=== PATIENT | male | born 1980 ===

== ENCOUNTER 2017-08-17 21:54 | Emergency (ER) | payer SELFPAY ==
[2017-08-17] MEDS ORDERED: 0.9 % SODIUM CHLORIDE 1,000 ML BAG IV ONE (22:04)
[2017-08-17] MEDS ORDERED: ONDANSETRON HCL IV 4 MG/2 ML VIAL IVP ONE (22:04)
[2017-08-17] MEDS ORDERED: MAGNESIUM SULFATE 16 MEQ in 0.9 % SODIUM CHLORIDE 100ML 100 ML IV ONE (22:05)
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
[2017-08-17 22:17] LABS: BASO % 0.3 % (0-6); EOS % 0.3 % (0-6); GRAN % 69.3 % (47-80); HEMATOCRIT 42.8 % (42.0-52.0); HEMOGLOBIN 14.7 gm/dl (14.0-18.0); LYMPH % 26.8 % (16-45); MEAN CELL VOLUME 91.1 fl (81-97); MEAN CORPUSCULAR HEMOGLOBIN 31.3 pg (27-33); MEAN CORPUSCULAR HGB CONC 34.3 g/dl (32-36); MEAN PLATELET VOLUME 10.5 fl (7.4-10.4); MONO % 3.3 % (0-9); PLATELET COUNT 320 K/uL (130-400); RED CELL DISTRIBUTION WIDTH 12.8 % (11.5-14.5)
[2017-08-17 22:30] LABS: BLOOD UREA NITROGEN 9 mg/dL (6-20); CREATININE 0.8 mg/dL (0.7-1.2); EST GLOMERULAR FILTRATION RATE > 60 mL/min
[2017-08-17 22:31] LABS: TOTAL PROTEIN 7.9 g/dL (6.6-8.7)
[2017-08-17 22:33] LABS: GLUCOSE,RANDOM 119 mg/dL (74-109)
[2017-08-17 22:35] LABS: ALT/SGPT 10 U/L (<41)
[2017-08-17 22:36] LABS: ALB/GLOB RATIO 1.6 (1.1-1.8); ALBUMIN 4.9 g/dL (4.0-5.0); ALKALINE PHOSPHATASE 79 U/L (40-129); AST/SGOT 14 U/L (10.0-50.0)
[2017-08-17 22:44] LABS: ACETAMINOPHEN < 5.0 ug/mL (10.0-30.0); ALCOHOL 0.317 g/dL (0-0.010); SALICYLATE < 0.3 mg/dL (2.8-20)
[2017-08-17] MEDS ORDERED: THIAMINE HCL IV 100 MG in 0.9 % SODIUM CHLORIDE 1000ML 1,000 ML IV SCH (22:45)
[2017-08-17] MEDS ORDERED: THIAMINE HCL IV 100 MG in 0.9 % SODIUM CHLORIDE 1000ML 1,000 ML IV ONE (22:47)
== END 2017-08-18 01:15 | disposition home or self-care (01) ==
LOC: ER 21:54
DX: F10.129 Alcohol abuse with intoxication, unspecified (principal); Y90.8 Blood alcohol level of 240 mg/100 ml or more; R11.2 Nausea with vomiting, unspecified
CPT/HCPCS: 99284 ×2; 96365; 96366; 96375; 85025; 80053; 93005; 93010; G0480 ×3; J2405; 80320; 80329; J3411; J7030

== ENCOUNTER 2017-11-09 00:03 | Emergency (ER) | payer SELFPAY ==
[2017-11-09] MEDS ORDERED: IBUPROFEN 600 MG TABLET PO ONE (00:32)
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
== END 2017-11-09 01:07 | disposition home or self-care (01) ==
LOC: ER 00:03
DX: S86.812A Strain of other muscle(s) and tendon(s) at lower leg level, left leg, initial encounter (principal); X50.0XXA Overexertion from strenuous movement or load, initial encounter; Y92.410 Unspecified street and highway as the place of occurrence of the external cause
CPT/HCPCS: 99282

== ENCOUNTER 2017-11-29 19:59 | Emergency (ER) | payer SELFPAY ==
[2017-11-29] MEDS ORDERED: IPRATROPIUM/ALBUTEROL (0.5MG/3MG) NEB INH ONE (20:34)
--- NOTE | 2017-11-29 20:47 | Emergency Department Record ---
History of Present Illness - General Chief Complaint: Shortness of breath Stated Complaint: KHADRA/ASTHMA RELATED/ L LEG PAIN Time Seen by Provider: 11/29/17 20:18 Source: Patient Mode of Arrival: Ambulatory Limitations: No limitations - History of Present Illness Initial Comments: pt has a productive orange brown cough. he also states he never f/u re his leg injury as instructed. Complaint: Cough, Shortness of breath Onset/Timin -: Week(s) Consistency: Intermittent Context: Recent URI Associated Symptoms: Cough, Sputum production - Related Data Previous Rx's Medication Instructions Recorded Sulfamethoxazole/Trimethoprim 1 each PO BID #14 tablet 11/29/17 [Bactrim Ds Tablet] Allergies Allergy/AdvReac Type Severity Reaction Status Date / Time Penicillins Allergy HIVES Verified 11/09/17 00:12 Travel Screening - Travel/Exposure Within Last 30 Days Have you traveled within the last 30 days?: No - Travel Symptoms Symptom Screening: None Review of Systems Reviewed: No additional complaints except as noted below Constitutional: Reports: As per HPI. Denies: Chills, Fever, Malaise, Night sweats, Weakness, Weight change Eyes: Reports: As per HPI. Denies: Eye discharge, Eye pain, Photophobia, Vision change ENT: Reports: As per HPI. Denies: Congestion, Dental pain, Ear pain, Epistaxis , Hearing loss, Throat pain Respiratory: Reports: As per HPI. Denies: Cough, Dyspnea, Hemoptysis, Stridor, Wheezes Cardiovascular: Reports: As per HPI. Denies: Arrhythmia, Chest pain, Dyspnea on exertion, Edema, Murmurs, Orthopnea, Palpitations, Paroxysmal nocturnal dyspnea, Rheumatic Fever, Syncope Endocrine: Reports: As per HPI. Denies: Fatigue, Heat or cold intolerance, Polydipsia, Polyuria Gastrointestinal: Reports: As per HPI. Denies: Abdominal pain, Constipation, Diarrhea, Hematemesis, Hematochezia, Melena, Nausea, Vomiting Genitourinary: Reports: As per HPI. Denies: Dysuria, Frequency, Hematuria, Incontinence, Retention, Testicular pain, Testicular mass, Urgency Musculoskeletal: Reports: As per HPI. Denies: Arthralgia, Back pain, Gout, Joint swelling, Myalgia, Neck pain Skin: Reports: As per HPI. Denies: Bruising, Change in color, Change in hair/ nails, Lesions, Pruritus, Rash Neurological: Reports: As per HPI. Denies: Abnormal gait, Confusion, Headache, Numbness, Paresthesias, Seizure, Tingling, Tremors, Vertigo, Weakness Psychiatric: Reports: As per HPI. Denies: Anxiety, Auditory hallucinations, Depression, Homicidal thoughts, Suicidal thoughts, Visual hallucinations Hematological/Lymphatic: Reports: As per HPI. Denies: Anemia, Blood Clots, Easy bleeding, Easy bruising, Swollen glands Past Medical History - SOCIAL HISTORY Smoking Status: Current every day smoker - RESPIRATORY Hx Respiratory Disorders: Yes Hx Asthma: Yes - CARDIOVASCULAR Hx Cardio Disorders: No - NEURO Hx Neuro Disorders: No - GI Hx GI Disorders: No - Hx Genitourinary Disorders: No - ENDOCRINE Hx Endocrine Disorders: No - MUSCULOSKELETAL Hx Musculoskeletal Disorders: No - PSYCH Hx Psych Problems: No - HEMATOLOGY/ONCOLOGY Hx Hematology/Oncology Disorders: No Family Medical History Any Significant Family History?: No Family Hx Comment (NOT TO BE USED IN PLACE OF ITEMS BELOW): unknown Physical Exam - General General Appearance: Alert, Oriented x3, Cooperative, Mild distress - Head Head exam: Normal inspection - Eye Eye exam: Normal appearance, PERRL, EOMI Pupils: Normal accommodation - ENT ENT exam: Normal exam, Mucous membranes moist, Normal external ear exam, Normal orophraynx Ear exam: Normal external inspection. negative: External canal tenderness Nasal Exam: Normal inspection. negative: Discharge, Sinus tenderness Mouth exam: Normal external inspection, Tongue normal Teeth exam: Normal inspection. negative: Dental caries Throat exam: Normal inspection. negative: Tonsillar erythema, Tonsillar exudate - Neck Neck exam: Normal inspection, Full ROM. negative: Tenderness - Respiratory Respiratory exam: Normal lung sounds bilaterally. negative: Respiratory distress - Cardiovascular Cardiovascular Exam: Regular rate, Normal rhythm, Normal heart sounds - GI/Abdominal GI/Abdominal exam: Soft, Normal bowel sounds. negative: Tenderness - Rectal Rectal exam: Deferred - exam: Deferred - Extremities Extremities exam: Normal inspection, Full ROM, Normal capillary refill. negative: Tenderness - Back Back exam: Reports: Normal inspection, Full ROM. Denies: Muscle spasm, Rash noted, Tenderness - Neurological Neurological exam: Alert, CN II-XII intact, Normal gait, Oriented X3 - Psychiatric Psychiatric exam: Normal affect, Normal mood - Skin Skin exam: Dry, Intact, Normal color, Warm Course Vital Signs 11/29/17 20:06 Temperature 97.5 F L Pulse Rate [ 78 Pulse Ox Probe] Respiratory 20 Rate Blood Pressure 147/78 [Left Arm] Pulse Ox 100 - Reevaluation(s) Reevaluation #1: 11/29/17 21:46 pt had been previously been seen for gastrocnemius partial rupture in the ed. he was to follow up with ortho which he has not done Disposition Disposition: Discharge Clinical Impression: Bronchitis Disposition: Home, Self-Care Condition: (1) Good Instructions: Acute Bronchitis (ED) Additional Instructions: follow up with family doctor. return sooner if worse. follow up with ortho as previously arranged Prescriptions: Sulfamethoxazole/Trimethoprim [Bactrim Ds Tablet] 1 each PO BID #14 tablet Referrals: [facility] Special[facility] [Provider Group] NILSON NOGUEIRA [DOCTOR OF OSTEOPATH] - Forms: Patient Portal Access Quality - Quality Measures Quality Measures: N/A - Blood Pressure Screening Does Patient Have Any of the Following: No Blood Pressure Classification: Hypertensive Reading Systolic Measurement: 147 Diastolic Measurement: 78 Screening for High Blood Pressure: < Pre-Hypertensive BP, F/U Documented > [ G8950] Pre-Hypertensive Follow-up Interventions: Follow-up with rescreen every year.
[2017-11-29] MEDS ORDERED: TMP/SMZ 160MG/800MG TAB PO ONE (21:42)
[2017-11-29] MEDS ORDERED: ALBUTEROL HFA 8 GM INHALER INH SCH (23:00)
--- NOTE | 2017-12-01 09:34 | RADIOLOGY REPORT ---
EXAM: CHEST, TWO VIEWS HISTORY: PATIENT HAS PRODUCTIVE COUGH AND SHORTNESS OF BREATH. TECHNIQUE: Two views of the chest are provided without comparison examination. FINDINGS: The cardiomediastinal silhouette is within normal limits for size and contour. The gee appear unremarkable. There is no radiographic evidence of a focal infiltrate, pleural effusion, or pneumothorax. IMPRESSION: NO RADIOGRAPHIC EVIDENCE OF AN ACUTE INTRATHORACIC PROCESS. JOB NUMBER: [id number] [facility]
== END 2017-11-29 22:04 | disposition home or self-care (01) ==
LOC: ER 19:59
DX: J20.9 Acute bronchitis, unspecified (principal); M79.1 Myalgia; R06.02 Shortness of breath; F17.210 Nicotine dependence, cigarettes, uncomplicated
CPT/HCPCS: 99283; 99284; 71046; 94640; J3490

== ENCOUNTER 2018-03-19 11:45 | Emergency (ER) | payer SELFPAY ==
[2018-03-19] MEDS ORDERED: METHYLPREDNISOLONE PF 125MG/VIAL IM ONE (13:11)
[2018-03-19] MEDS ORDERED: DIPHENHYDRAMINE HCL 50 MG/ML VIAL IM ONE (13:11)
--- NOTE | 2018-03-19 13:16 | Emergency Department Record ---
History of Present Illness - General Chief complaint: Poison nancy/oak/sumac exposure Stated complaint: poison nancy Time Seen by Provider: 03/19/18 13:07 Source: Patient Mode of Arrival: Ambulatory Limitations: No limitations - History of Present Illness Initial comments: pt has been working out in the shrub outside and now has poison nancy. complaint: Rash Onset/Timin -: Days(s) Location: Generalized Consistency: Constant Improves with: None Worsens with: None Context: Other Associated symptoms: Itching Treatments Prior to Arrival: OTC topical medication - Related Data Previous Rx's Medication Instructions Recorded Methylprednisolone [Medrol Dose 4 mg PO ASDIR #1 tab.ds.pk 03/19/18 Pack] Allergies Allergy/AdvReac Type Severity Reaction Status Date / Time bee venom protein (honey bee) Allergy ANAPHYLAXIS Verified 03/19/18 13:00 Penicillins Allergy HIVES Verified 03/19/18 13:00 Travel Screening - Travel/Exposure Within Last 30 Days Have you traveled within the last 30 days?: No - Travel/Exposure Within Last Year Have you traveled outside the [place] in the last year?: No - Additonal Travel Details Have you been exposed to anyone with a communicable illness?: No - Travel Symptoms Symptom Screening: None Review of Systems Reviewed: No additional complaints except as noted below Constitutional: Reports: As per HPI. Denies: Chills, Fever, Malaise, Night sweats, Weakness, Weight change Eyes: Reports: As per HPI. Denies: Eye discharge, Eye pain, Photophobia, Vision change ENT: Reports: As per HPI. Denies: Congestion, Dental pain, Ear pain, Epistaxis , Hearing loss, Throat pain Respiratory: Reports: As per HPI. Denies: Cough, Dyspnea, Hemoptysis, Stridor, Wheezes Cardiovascular: Reports: As per HPI. Denies: Arrhythmia, Chest pain, Dyspnea on exertion, Edema, Murmurs, Orthopnea, Palpitations, Paroxysmal nocturnal dyspnea, Rheumatic Fever, Syncope Endocrine: Reports: As per HPI. Denies: Fatigue, Heat or cold intolerance, Polydipsia, Polyuria Gastrointestinal: Reports: As per HPI. Denies: Abdominal pain, Constipation, Diarrhea, Hematemesis, Hematochezia, Melena, Nausea, Vomiting Genitourinary: Reports: As per HPI. Denies: Dysuria, Frequency, Hematuria, Incontinence, Retention, Testicular pain, Testicular mass, Urgency Musculoskeletal: Reports: As per HPI. Denies: Arthralgia, Back pain, Gout, Joint swelling, Myalgia, Neck pain Skin: Reports: As per HPI. Denies: Bruising, Change in color, Change in hair/ nails, Lesions, Pruritus, Rash Neurological: Reports: As per HPI. Denies: Abnormal gait, Confusion, Headache, Numbness, Paresthesias, Seizure, Tingling, Tremors, Vertigo, Weakness Psychiatric: Reports: As per HPI. Denies: Anxiety, Auditory hallucinations, Depression, Homicidal thoughts, Suicidal thoughts, Visual hallucinations Hematological/Lymphatic: Reports: As per HPI. Denies: Anemia, Blood Clots, Easy bleeding, Easy bruising, Swollen glands Past Medical History - SOCIAL HISTORY Smoking Status: Current every day smoker Alcohol Use: None Drug Use: None - RESPIRATORY Hx Respiratory Disorders: Yes Hx Asthma: Yes - CARDIOVASCULAR Hx Cardio Disorders: No - NEURO Hx Neuro Disorders: No - GI Hx GI Disorders: No - Hx Genitourinary Disorders: No - ENDOCRINE Hx Endocrine Disorders: No - MUSCULOSKELETAL Hx Musculoskeletal Disorders: No - PSYCH Hx Psych Problems: No - HEMATOLOGY/ONCOLOGY Hx Hematology/Oncology Disorders: No Family Medical History Any Significant Family History?: No Family Hx Comment (NOT TO BE USED IN PLACE OF ITEMS BELOW): unknown Physical Exam - General General Appearance: Alert, Oriented x3, Cooperative, Mild distress - Head Head exam: Normal inspection - Eye Eye exam: Normal appearance, PERRL, EOMI Pupils: Normal accommodation - ENT ENT exam: Normal exam, Mucous membranes moist, Normal external ear exam, Normal orophraynx, TM's normal bilaterally Ear exam: Normal external inspection. negative: External canal tenderness Nasal Exam: Normal inspection. negative: Discharge, Sinus tenderness Mouth exam: Normal external inspection, Tongue normal Teeth exam: Normal inspection. negative: Dental caries Throat exam: Normal inspection. negative: Tonsillar erythema, Tonsillar exudate - Neck Neck exam: Normal inspection, Full ROM. negative: Tenderness - Respiratory Respiratory exam: Normal lung sounds bilaterally. negative: Respiratory distress - Cardiovascular Cardiovascular Exam: Regular rate, Normal rhythm, Normal heart sounds - GI/Abdominal GI/Abdominal exam: Soft, Normal bowel sounds. negative: Tenderness - Rectal Rectal exam: Deferred - exam: Deferred - Extremities Extremities exam: Normal inspection, Full ROM, Normal capillary refill. negative: Tenderness - Back Back exam: Reports: Normal inspection, Full ROM. Denies: Muscle spasm, Rash noted, Tenderness - Neurological Neurological exam: Alert, CN II-XII intact, Normal gait, Oriented X3 - Psychiatric Psychiatric exam: Normal affect, Normal mood - Skin Skin exam: Dry, Intact, Normal color, Rash, Warm Distribution of rash: Chest, Genitals, RUE, LUE Description of rash: Confluent, Macular, Papular, Vesicular Course Vital Signs 03/19/18 03/19/18 11:50 13:01 Temperature 98.5 F 98.5 F Pulse Rate 60 Respiratory 18 18 Rate Blood Pressure 115/67 Pulse Ox 98 98 Disposition Disposition: Discharge Clinical Impression: Poison nancy dermatitis Disposition: Home, Self-Care Condition: (1) Good Instructions: Poison Nancy (ED) Additional Instructions: follow up with family doctor. return sooner if worse. benadryl every 6 hours as needed Prescriptions: Methylprednisolone [Medrol Dose Pack] 4 mg PO ASDIR #1 tab.ds.pk Quality - Quality Measures Quality Measures: N/A - Blood Pressure Screening Does Patient Have Any of the Following: No Blood Pressure Classification: Normal BP Reading Systolic Measurement: 115 Diastolic Measurement: 67 Screening for High Blood Pressure: < Normal BP, F/U Not Required > [G8783]
== END 2018-03-19 13:38 | disposition home or self-care (01) ==
LOC: ER 11:45
DX: L23.7 Allergic contact dermatitis due to plants, except food (principal); F17.210 Nicotine dependence, cigarettes, uncomplicated
CPT/HCPCS: 96372; 99283; J1200; J2930

== ENCOUNTER 2018-03-21 18:17 | Emergency (ER) | payer SELFPAY ==
[2018-03-21] MEDS ORDERED: METHYLPREDNISOLONE PF 125MG/VIAL IVP ONE (18:21)
[2018-03-21] MEDS ORDERED: FAMOTIDINE IV 20 MG/2 ML VIAL IVP ONE (18:21)
[2018-03-21] MEDS ORDERED: DIPHENHYDRAMINE HCL 50 MG/ML VIAL IVP ONE (18:21)
--- NOTE | 2018-03-21 18:27 | Emergency Department Record ---
History of Present Illness - General Stated complaint: REACTION TO BEE STINGS Time Seen by Provider: 03/21/18 18:18 Source: Patient Mode of Arrival: Ambulatory Limitations: No limitations - History of Present Illness Initial Comments: 37 yo male presents to ED for evaluation following a bee sting to the upper lip and right hand that occurred approximately 30 minutes prior to arrival. Patient reports a history of localized reactions with previous bee stings. Patient also reports taking Benadryl just prior to arrival as well. Patient denies throat swelling, difficulty breathing, or wheezing at this time. Patient also denies health problems at his baseline. MD Complaint: Facial swelling Onset/Timin -: Minutes(s) Exposure: Insect bite Symptoms: Itching, Lip swelling Severity: Moderate Treatment Prior to Arrival: Benadryl - Related Data Previous Rx's Medication Instructions Recorded Methylprednisolone [Medrol Dose 4 mg PO ASDIR #1 tab.ds.pk 03/19/18 Pack] Famotidine [Pepcid] 40 mg PO DAILY #15 tablet 03/21/18 Prednisone [Prednisone 20Mg] 20 mg PO TID #12 tab 03/21/18 Allergies Allergy/AdvReac Type Severity Reaction Status Date / Time bee venom protein (honey bee) Allergy ANAPHYLAXIS Verified 03/19/18 13:00 Penicillins Allergy HIVES Verified 03/19/18 13:00 Review of Systems Constitutional: Denies: Chills, Fever, Malaise, Night sweats Eyes: Denies: Eye discharge, Eye pain ENT: Reports: Other (Lip swelling). Denies: Congestion, Ear pain, Epistaxis Respiratory: Denies: Cough, Dyspnea, Hemoptysis Cardiovascular: Denies: Chest pain, Dyspnea on exertion Endocrine: Denies: Fatigue, Heat or cold intolerance Gastrointestinal: Denies: Abdominal pain, Nausea, Vomiting Genitourinary: Denies: Incontinence, Retention Musculoskeletal: Denies: Arthralgia, Back pain, Gout, Joint swelling Skin: Reports: Change in color, Rash (Right hand resulting from sting). Denies : Bruising Neurological: Denies: Abnormal gait, Confusion, Headache Psychiatric: Denies: Anxiety Hematological/Lymphatic: Denies: Anemia, Blood Clots Past Medical History - SOCIAL HISTORY Smoking Status: Current every day smoker Drug Use: None - RESPIRATORY Hx Respiratory Disorders: Yes Hx Asthma: Yes - CARDIOVASCULAR Hx Cardio Disorders: No - NEURO Hx Neuro Disorders: No - GI Hx GI Disorders: No - Hx Genitourinary Disorders: No - ENDOCRINE Hx Endocrine Disorders: No - MUSCULOSKELETAL Hx Musculoskeletal Disorders: No - PSYCH Hx Psych Problems: No - HEMATOLOGY/ONCOLOGY Hx Hematology/Oncology Disorders: No Family Medical History Family Hx Comment (NOT TO BE USED IN PLACE OF ITEMS BELOW): unknown Physical Exam - General General Appearance: Alert, Oriented x3, Cooperative, Mild distress Limitations: No limitations - Head Head exam: Atraumatic Head exam detail: negative: Abrasion, Contusion, Cohen's sign, General tenderness, Hematoma, Laceration - Eye Eye exam: Normal appearance. negative: Conjunctival injection, Periorbital swelling, Periorbital tenderness, Scleral icterus - ENT Ear exam: negative: Auricular hematoma, Auricular trauma Nasal Exam: negative: Active bleeding, Discharge, Dried blood Mouth exam: Other (Swelling to the upper lip on examination). negative: Drooling, Laceration, Muffled voice, Tongue elevation, Tongue normal Throat exam: Other (No uvular edema on examination). negative: R peritonsillar mass, L peritonsillar mass - Neck Neck exam: Normal inspection. negative: Meningismus, Tenderness - Respiratory Respiratory exam: Normal lung sounds bilaterally. negative: Respiratory distress, Rhonchi, Stridor, Wheezes - Cardiovascular Cardiovascular Exam: Regular rate, Normal rhythm, Normal heart sounds - GI/Abdominal GI/Abdominal exam: Soft. negative: Rebound, Rigid, Tenderness - Rectal Rectal exam: Deferred - exam: Deferred - Extremities Extremities exam: Tenderness (Localized reaction to a sting to the dorsun of the right hand, interspace between the index finger and thumb with localized erythema and swelling present.). negative: Pedal edema - Back Back exam: Denies: CVA tenderness (R), CVA tenderness (L) - Neurological Neurological exam: Alert, Normal gait, Oriented X3 - Psychiatric Psychiatric exam: Normal affect, Normal mood - Skin Skin exam: Erythema, Urticaria (Localized). negative: Abrasion Type of lesion: negative: abrasion Distribution of rash: RUE Course - Reevaluation(s) Reevaluation #1: 03/21/18 18:30 Patient was seen and examined, Solumedrol, Pepcid, and Benadryl ordered IV. No evidence for anaphylactic reaction on examination, but will monitor closely for progression of the patient's lip swelling and administer epinephrine if symptoms progress. Reevaluation #2: 03/21/18 18:54 Patient reassessed, reports symptoms are beginning to improve. Reevaluation #3: 03/21/18 19:36 Patient reassessed, resting comfortably with no respiratory/airway distress. Patient's lip swelling continues to improve, localized reaction to the right hand is significantly improved as well. Will continue to observe. Reevaluation #4: 03/21/18 20:38 Patient continues to improve, reports that he is ready to go home at this time. Will discharge home on Prednisone and Pepcid as directed for recurrent swelling symptoms. Patient verbalizes understanding of all instructions and appears stable for discharge at this time. Disposition Disposition: Discharge Clinical Impression: Bee sting reaction Qualifiers: Encounter type: initial encounter Injury intent: undetermined intent Qualified Code(s): T63.444A - Toxic effect of venom of bees, undetermined, initial encounter Disposition: Home, Self-Care Condition: (2) Stable Instructions: Insect Bite or Sting (ED) Additional Instructions: Return to ED if your symptoms worsen or if you have any concerns. Prednisone, Pepcid and directed. Follow-up with your family doctor in 3-5 days as directed. Prescriptions: Famotidine [Pepcid] 40 mg PO DAILY #15 tablet Prednisone [Prednisone 20Mg] 20 mg PO TID #12 tab Time of Disposition: 20:40 Quality - Quality Measures Quality Measures: N/A - Blood Pressure Screening Does Patient Have Any of the Following: No Blood Pressure Classification: Pre-Hypertensive BP Reading Systolic Measurement: 141 Diastolic Measurement: 82 Screening for High Blood Pressure: < Pre-Hypertensive BP, F/U Documented > [ G8950] Pre-Hypertensive Follow-up Interventions: Referral to alternative/primary care provider.
== END 2018-03-21 20:42 | disposition home or self-care (01) ==
LOC: ER 18:17
DX: T63.441A Toxic effect of venom of bees, accidental (unintentional), initial encounter (principal); R22.0 Localized swelling, mass and lump, head; F17.210 Nicotine dependence, cigarettes, uncomplicated
CPT/HCPCS: 99284 ×2; 96374; 96375; J3490; J1200; J2930

== ENCOUNTER 2018-05-10 14:05 | Emergency (ER) | payer SELFPAY | END 2018-05-10 14:57 | disposition left against medical advice (07) | LOC: ER 14:05 | DX: Z53.20 Procedure and treatment not carried out because of patient's decision for unspecified reasons (principal) ==

== ENCOUNTER 2018-06-15 17:35 | Emergency (ER) | payer SELFPAY ==
[2018-06-15] MEDS ORDERED: 0.9 % SODIUM CHLORIDE 1,000 ML BAG IV ONE (17:57)
[2018-06-15] MEDS ORDERED: ONDANSETRON HCL IV 4 MG/2 ML VIAL IV ONE (17:57)
[2018-06-15] MEDS ORDERED: SUCRALFATE 1 G/10 ML UD PO ONE (18:06)
--- NOTE | 2018-06-15 18:06 | Emergency Department Record ---
History of Present Illness - General Chief Complaint: Suicidal thoughts Stated Complaint: THOUGHTS OF HURTING HIMSELF Time Seen by Provider: 06/15/18 17:44 Source: Patient Mode of Arrival: Ambulatory Limitations: No limitations Travel/Exposure to [place] Within 21 Days of Symptoms: No - History of Present Illness Initial Comments: The patient is here due to feeling suicidal for a month at least. He is very depressed about not having a job and being homeless and also has abused drugs in the past. He now is thinking of overdosing on medicines to end his life. The patient last overdosed on February 18 but did not seek help then. He also is complaining of total body pain for many months. Now he has had vomiting and diarrhea for 3 days and mild epigastric AP. He denies any fever, chills, or blood in the stool or vomit. -: Month(s) Associated Psychiatric Symptoms: Suicidal ideation History of same: Yes Quality: Constant Improves With: None Worsens With: None Associated Symptoms: Vomiting Treatments Prior to Arrival: None If Self Harm: Admits thoughts of self harm, Has acted on plan, Intentional overdose - Rule Coma Scale Eye Response: (4) Open spontaneously Motor Response: (6) Obeys commands Verbal Response: (5) Oriented Rule Total: 15 - Related Data Home Medications Medication Instructions Recorded Confirmed Last Taken No Home Med [NO HOME MEDS] 06/15/18 06/15/18 Unknown Allergies Allergy/AdvReac Type Severity Reaction Status Date / Time bee venom protein (honey bee) Allergy ANAPHYLAXIS Verified 06/15/18 17:41 mushroom Allergy HIVES Verified 06/15/18 17:54 Penicillins Allergy HIVES Verified 06/15/18 17:41 Review of Systems Constitutional: Denies: Chills, Fever Eyes: Denies: Eye discharge ENT: Denies: Congestion Respiratory: Denies: Cough, Dyspnea Cardiovascular: Denies: Arrhythmia, Chest pain Endocrine: Denies: Fatigue Gastrointestinal: Reports: Diarrhea, Nausea, Vomiting Genitourinary: Denies: Dysuria Musculoskeletal: Denies: Arthralgia Skin: Denies: Bruising Neurological: Denies: Abnormal gait, Confusion, Headache, Seizure Past Medical History - SOCIAL HISTORY Smoking Status: Current every day smoker Alcohol Use: None Drug Use: None - RESPIRATORY Hx Respiratory Disorders: Yes Hx Asthma: Yes - CARDIOVASCULAR Hx Cardio Disorders: No - NEURO Hx Neuro Disorders: No - GI Hx GI Disorders: No - Hx Genitourinary Disorders: No - ENDOCRINE Hx Endocrine Disorders: No - MUSCULOSKELETAL Hx Musculoskeletal Disorders: No - PSYCH Hx Psych Problems: No - HEMATOLOGY/ONCOLOGY Hx Hematology/Oncology Disorders: No Family Medical History Any Significant Family History?: No Family Hx Comment (NOT TO BE USED IN PLACE OF ITEMS BELOW): unknown Physical Exam - General General Appearance: Alert, Oriented x3, Cooperative, No acute distress - Head Head exam: Atraumatic, Normocephalic, Normal inspection - Eye Eye exam: Normal appearance, PERRL, EOMI - ENT Throat exam: Normal inspection. negative: Tonsillar erythema, Tonsillar exudate - Neck Neck exam: Normal inspection, Full ROM. negative: Tenderness - Respiratory Respiratory exam: Normal lung sounds bilaterally. negative: Respiratory distress - Cardiovascular Cardiovascular Exam: Regular rate, Normal rhythm, Normal heart sounds - GI/Abdominal GI/Abdominal exam: Soft, Normal bowel sounds, Tenderness (There is mild epigastic tenderness.). negative: Distended, Guarding, Rebound, Rigid - Extremities Extremities exam: Normal inspection, Full ROM, Normal capillary refill. negative: Tenderness - Neurological Neurological exam: Alert, Normal gait. negative: Abnormal gait, Motor sensory deficit Course Vital Signs 06/15/18 17:42 Temperature 98.4 F Pulse Rate 89 Respiratory 20 Rate Blood Pressure 112/79 Pulse Ox 97 - Reevaluation(s) Reevaluation #1: The patient is doing very well at this time. His abdomen is feeling much better and he is requesting yordan manuela. His nausea and vomiting have resolved with the Zofran and Carafate. 06/15/18 18:30 Reevaluation #2: The patient is doing very well at this time. He is drinking soda with no complaints of pain or discomfort or nausea. We are still waiting on a urinalysis. 06/15/18 18:43 Reevaluation #3: The patient's care will be turned over to due to shift change. 06/15/18 18:49 Medical Decision Making - Data Complexity MDM Data: Labs Ordered and/or Reviewed - Lab Data Result diagrams: 06/15/18 18:05 06/15/18 18:05 Disposition Disposition: Transfer Clinical Impression: Suicidal ideation Disposition: Psychiatric Hospital Transfer To: [facility] Reason For Transfer: Psych. Accepting Physician: Piter Time Discussed w/Accepting Physician: 18:45 Condition: (2) Stable Instructions: Suicide Prevention for Adults (ED) Forms: Patient Portal Access Time of Disposition: 18:45 Quality - Quality Measures Quality Measures: N/A - Blood Pressure Screening View Details: Yes Does Patient Have Any of the Following: No Blood Pressure Classification: Normal BP Reading Systolic Measurement: 112 Diastolic Measurement: 79 Screening for High Blood Pressure: < Normal BP, F/U Not Required > [G8783]
[2018-06-15 18:11] LABS: BASO % 0.1 % (0-6); EOS % 0.4 % (0-6); GRAN % 63.9 % (47-80); HEMATOCRIT 42.7 % (42.0-52.0); LYMPH % 26.1 % (16-45); MEAN CELL VOLUME 88.2 fl (81-97); MEAN CORPUSCULAR HGB CONC 35.1 g/dl (32-36); MEAN PLATELET VOLUME 9.9 fl (7.4-10.4); MONO % 9.5 % (0-9); PLATELET COUNT 397 K/uL (130-400); RED BLOOD COUNT 4.84 M/uL (4.40-5.70); RED CELL DISTRIBUTION WIDTH 12.5 % (11.5-14.5)
[2018-06-15 18:20] LABS: BLOOD UREA NITROGEN 18 mg/dL (6-20); CREATININE 0.7 mg/dL (0.7-1.2); EST GLOMERULAR FILTRATION RATE > 60 mL/min
[2018-06-15 18:21] LABS: TOTAL PROTEIN 7.4 g/dL (6.6-8.7)
[2018-06-15 18:23] LABS: GLUCOSE,RANDOM 84 mg/dL (74-109)
[2018-06-15 18:26] LABS: ALBUMIN 4.3 g/dL (4.0-5.0); ALKALINE PHOSPHATASE 74 U/L (40-129); ALT/SGPT 15 U/L (<41); AST/SGOT 33 U/L (10.0-50.0)
[2018-06-15 18:27] LABS: BILIRUBIN,DIRECT < 0.2 mg/dL (0-0.3); LIPASE 25 U/L (13-60)
[2018-06-15 18:28] LABS: ACETAMINOPHEN < 5.0 ug/mL (10.0-30.0); SALICYLATE < 0.3 mg/dL (2.8-20)
[2018-06-15 18:53] LABS: URINE APPEARANCE CLEAR; URINE BILIRUBIN SMALL (NEGATIVE); URINE BLOOD SMALL (NEGATIVE); URINE COLOR YELLOW; URINE GLUCOSE (UA) NEGATIVE (NEGATIVE); URINE KETONE 40 mg/dL (NEGATIVE); URINE LEUKOCYTE ESTERASE NEGATIVE (NEGATIVE); URINE NITRITE NEGATIVE (NEGATIVE); URINE PROTEIN NEGATIVE (NEGATIVE); URINE UROBILINOGEN 0.2 E.U./dL (0.20 - 1.00)
[2018-06-15 18:54] LABS: AMPHETAMINE SCREEN URINE DETECTED; BARBITURATE SCREEN URINE NOT DETECTED; BENZODIAZEPINE SCREEN URINE NOT DETECTED; COCAINE SCREEN URINE NOT DETECTED; METHADONE SCREEN URINE NOT DETECTED; METHAMPHETAMINE SCREEN DETECTED; OPIATE SCREEN URINE NOT DETECTED; OXYCODONE SCREEN URINE NOT DETECTED; PHENCYCLIDINE SCREEN URINE NOT DETECTED; PROPOXYPHENE SCREEN URINE NOT DETECTED; THC SCREEN URINE DETECTED; TRICYCLIC ANTIDEPRESSANT SCRN NOT DETECTED
[2018-06-15 18:57] LABS: URINE EPITHELIAL CELLS 0 - 2 (FEW); URINE RBC NONE SEEN (NONE SEEN); URINE WBC NONE SEEN (0-2/hpf)
--- NOTE | 2018-06-15 19:05 | Emergency Department Record ---
History of Present Illness - General Chief Complaint: Suicidal thoughts Stated Complaint: THOUGHTS OF HURTING HIMSELF Time Seen by Provider: 06/15/18 17:44 Source: Patient Mode of Arrival: Ambulatory Travel/Exposure to [facility] Within 21 Days of Symptoms: No - History of Present Illness -: Month(s) Associated Psychiatric Symptoms: Suicidal ideation History of same: Yes Quality: Constant Improves With: None Worsens With: None Associated Symptoms: Vomiting Treatments Prior to Arrival: None If Self Harm: Admits thoughts of self harm, Has acted on plan, Intentional overdose - Ml Coma Scale Eye Response: (4) Open spontaneously Motor Response: (6) Obeys commands Verbal Response: (5) Oriented [place] Total: 15 - Related Data Home Medications Medication Instructions Recorded Confirmed Last Taken No Home Med [NO HOME MEDS] 06/15/18 06/15/18 Unknown Allergies Allergy/AdvReac Type Severity Reaction Status Date / Time bee venom protein (honey bee) Allergy ANAPHYLAXIS Verified 06/15/18 17:41 mushroom Allergy HIVES Verified 06/15/18 17:54 Penicillins Allergy HIVES Verified 06/15/18 17:41 Review of Systems Constitutional: Denies: Chills, Fever Eyes: Denies: Eye discharge ENT: Denies: Congestion Respiratory: Denies: Cough, Dyspnea Cardiovascular: Denies: Arrhythmia, Chest pain Endocrine: Denies: Fatigue Gastrointestinal: Reports: Diarrhea, Nausea, Vomiting Genitourinary: Denies: Dysuria Musculoskeletal: Denies: Arthralgia Skin: Denies: Bruising Neurological: Denies: Abnormal gait, Confusion, Headache, Seizure Past Medical History - SOCIAL HISTORY Smoking Status: Current every day smoker Alcohol Use: None Drug Use: None - RESPIRATORY Hx Respiratory Disorders: Yes Hx Asthma: Yes - CARDIOVASCULAR Hx Cardio Disorders: No - NEURO Hx Neuro Disorders: No - GI Hx GI Disorders: No - Hx Genitourinary Disorders: No - ENDOCRINE Hx Endocrine Disorders: No - MUSCULOSKELETAL Hx Musculoskeletal Disorders: No - PSYCH Hx Psych Problems: No - HEMATOLOGY/ONCOLOGY Hx Hematology/Oncology Disorders: No Family Medical History Any Significant Family History?: No Family Hx Comment (NOT TO BE USED IN PLACE OF ITEMS BELOW): unknown Physical Exam - General Limitations: No limitations Course Vital Signs 06/15/18 17:42 Temperature 98.4 F Pulse Rate 89 Respiratory 20 Rate Blood Pressure 112/79 Pulse Ox 97 - Reevaluation(s) Reevaluation #1: The patient after being in the Dept for an hour states he also has a hx of chronic AP. He states he may have had a bleeding ulcer in the past. He has had his chronic AP for at least a year. The patient's nausea and vomiting are now improved and he is having no AP. He is drinking soda with no problems or vomiting. I strongly doubt any acute abdominal pathology presently and did discuss the need to get his abdominal issues evaluated when he is cleared from his psychiatric issues. 06/15/18 19:03 Medical Decision Making - Lab Data Result diagrams: 06/15/18 18:05 06/15/18 18:05 Lab Results 06/15/18 06/15/18 06/15/18 Range/Units 18:05 18:05 18:05 WBC 8.0 (4.2-12.2) K/uL RBC 4.84 (4.40-5.70) M/uL Hgb 15.0 (14.0-18.0) gm/dl Hct 42.7 (42.0-52.0) % MCV 88.2 (81-97) fl MCH 31.0 (27-33) pg MCHC 35.1 (32-36) g/dl RDW 12.5 (11.5-14.5) % Plt Count 397 (130-400) K/uL MPV 9.9 (7.4-10.4) fl Gran % 63.9 (47-80) % Lymphocytes % 26.1 (16-45) % Monocytes % 9.5 H (0-9) % Eosinophils % 0.4 (0-6) % Basophils % 0.1 (0-6) % Sodium 135 L (136-145) mmol/L Potassium 4.4 (3.4-4.5) mmol/L Chloride 96 L (98-107) mmol/L Carbon Dioxide 23.0 (22-29) mmol/L Anion Gap 16.0 (7-16) BUN 18 (6-20) mg/dL Creatinine 0.7 (0.7-1.2) mg/dL Estimated GFR > 60 mL/min Random Glucose 84 (74-109) mg/dL Calcium 9.0 (8.6-10.0) mg/dL Total Bilirubin 0.80 (0.2-1.0) mg/dL Direct Bilirubin < 0.2 (0-0.3) mg/dL AST 33 (10.0-50.0) U/L ALT 15 (<41) U/L Alkaline Phosphatase 74 (40-129) U/L Total Protein 7.4 (6.6-8.7) g/dL Albumin 4.3 (4.0-5.0) g/dL Lipase 25 (13-60) U/L Urine Color Urine Appearance Urine pH (5.0-8.0) Ur Specific [place] (1.002-1.030) Urine Protein (NEGATIVE) Urine Glucose (UA) (NEGATIVE) Urine Ketones (NEGATIVE) Urine Blood (NEGATIVE) Urine Nitrite (NEGATIVE) Urine Bilirubin (NEGATIVE) Urine Urobilinogen (0.20 - 1.00) E.U./dL Ur Leukocyte Esterase (NEGATIVE) Urine RBC (NONE SEEN) Urine WBC (0-2/hpf) Ur Epithelial Cells (FEW) Salicylates < 0.3 L (2.8-20) mg/dL Urine Opiates Screen Ur Oxycodone Screen Urine Methadone Screen Ur Propoxyphene Screen Acetaminophen < 5.0 L (10.0-30.0) ug/mL Ur Barbituates Screen Ur Tricyclics Screen Ur Phencyclidine Scrn Ur Amphetamine Screen U Methamphetamines Scrn U Benzodiazepines Scrn Urine Cocaine Screen Urine Cannabis Screen Ethyl Alcohol 0.000 (0-0.010) g/dL 06/15/18 06/15/18 Range/Units 18:46 18:46 WBC (4.2-12.2) K/uL RBC (4.40-5.70) M/uL Hgb (14.0-18.0) gm/dl Hct (42.0-52.0) % MCV (81-97) fl MCH (27-33) pg MCHC (32-36) g/dl RDW (11.5-14.5) % Plt Count (130-400) K/uL MPV (7.4-10.4) fl Gran % (47-80) % Lymphocytes % (16-45) % Monocytes % (0-9) % Eosinophils % (0-6) % Basophils % (0-6) % Sodium (136-145) mmol/L Potassium (3.4-4.5) mmol/L Chloride (98-107) mmol/L Carbon Dioxide (22-29) mmol/L Anion Gap (7-16) BUN (6-20) mg/dL Creatinine (0.7-1.2) mg/dL Estimated GFR mL/min Random Glucose (74-109) mg/dL Calcium (8.6-10.0) mg/dL Total Bilirubin (0.2-1.0) mg/dL Direct Bilirubin (0-0.3) mg/dL AST (10.0-50.0) U/L ALT (<41) U/L Alkaline Phosphatase (40-129) U/L Total Protein (6.6-8.7) g/dL Albumin (4.0-5.0) g/dL Lipase (13-60) U/L Urine Color Yellow Urine Appearance Clear Urine pH 5.5 (5.0-8.0) Ur Specific [place] >= 1.030 (1.002-1.030) Urine Protein Negative (NEGATIVE) Urine Glucose (UA) Negative (NEGATIVE) Urine Ketones 40 mg/dl H (NEGATIVE) Urine Blood Small H (NEGATIVE) Urine Nitrite Negative (NEGATIVE) Urine Bilirubin Small H (NEGATIVE) Urine Urobilinogen 0.2 (0.20 - 1.00) E.U./dL Ur Leukocyte Esterase Negative (NEGATIVE) Urine RBC None seen (NONE SEEN) Urine WBC None seen (0-2/hpf) Ur Epithelial Cells 0 - 2 (FEW) Salicylates (2.8-20) mg/dL Urine Opiates Screen Not detected Ur Oxycodone Screen Not detected Urine Methadone Screen Not detected Ur Propoxyphene Screen Not detected Acetaminophen (10.0-30.0) ug/mL Ur Barbituates Screen Not detected Ur Tricyclics Screen Not detected Ur Phencyclidine Scrn Not detected Ur Amphetamine Screen Detected U Methamphetamines Scrn Detected U Benzodiazepines Scrn Not detected Urine Cocaine Screen Not detected Urine Cannabis Screen Detected Ethyl Alcohol (0-0.010) g/dL Disposition Clinical Impression: Suicidal ideation Disposition: Psychiatric Hospital Condition: (2) Stable Instructions: Suicide Prevention for Adults (ED) Forms: Patient Portal Access Quality - Quality Measures Quality Measures: N/A - Blood Pressure Screening View Details: Yes Does Patient Have Any of the Following: No Blood Pressure Classification: Normal BP Reading Systolic Measurement: 112 Diastolic Measurement: 79 Screening for High Blood Pressure: < Normal BP, F/U Not Required > [G4504]
--- NOTE | 2018-06-17 05:19 | RADIOLOGY REPORT ---
DATE: 06/15/2018. EXAM: RIGHT FOOT RADIOGRAPHS. HISTORY: CHRONIC, INTERMITTENT RIGHT FOOT PAIN. NO KNOWN INJURY. TECHNIQUE: Three views of the right foot. COMPARISON: None. FINDINGS: No fracture detected. No dislocation. Suggestion of minimal degenerative change at the first metatarsophalangeal joint with tiny marginal osteophytes and possible small cyst in the medial metatarsal head. IMPRESSION: 1. NO DEFINITE ACUTE OSSEOUS FINDINGS. 2. MINIMAL DEGENERATIVE CHANGE AT THE FIRST METATARSOPHALANGEAL JOINT. JOB NUMBER: [id number] [facility]
== END 2018-06-15 20:45 ==
LOC: ER 17:35
DX: R45.851 Suicidal ideations (principal); R11.2 Nausea with vomiting, unspecified; R10.13 Epigastric pain; G89.29 Other chronic pain; R19.7 Diarrhea, unspecified; F17.210 Nicotine dependence, cigarettes, uncomplicated; Z95.0 Presence of cardiac pacemaker
CPT/HCPCS: 80048; 80076; 80305; 80320; 80329; 81001; 83690; 85025; 96374; 99285; J2405; J7030

== ENCOUNTER 2018-07-20 21:44 | Emergency (ER) | payer MEDICAID ==
[2018-07-20] MEDS ORDERED: HYOSCYAMINE SULFATE ODT 0.125 MG TAB.SUBL SL ONE (21:57)
[2018-07-20] MEDS ORDERED: ONDANSETRON 4 MG ODT TABLET SL ONE (21:57)
--- NOTE | 2018-07-20 22:00 | Emergency Department Record ---
History of Present Illness - General Chief Complaint: Suicide attempt Stated Complaint: NAUSEA/VOMITING Time Seen by Provider: 07/20/18 21:55 Source: Patient Mode of Arrival: Ambulatory Limitations: No limitations Travel/Exposure to [place] Within 21 Days of Symptoms: No - History of Present Illness Initial Comments: 38 yo male presents to ED for evaluation of nausea, vomiting, abdominal cramping , and "shaking all over" after filling a room with insecticide in an attempt to kill himself. Patient reports that his symptoms began approximately 1 hours ago while filling the room with the chemical spray. Patient denies cough or difficulty in breathing symptoms, denies health problems at his baseline other than chronic back pain, depression, and suicidal thoughts. MD Complaint: Feels depressed, Suicidal ideation Onset/Timin -: Hour(s) Associated Psychiatric Symptoms: Suicidal ideation History of same: Yes Quality: Constant Improves With: None Worsens With: None Associated Symptoms: Nausea, Vomiting Treatments Prior to Arrival: None If Self Harm: Admits thoughts of self harm, Has acted on plan - Ml Coma Scale Eye Response: (4) Open spontaneously Motor Response: (6) Obeys commands Verbal Response: (5) Oriented [place] Total: 15 - Related Data Allergies Allergy/AdvReac Type Severity Reaction Status Date / Time bee venom protein (honey bee) Allergy ANAPHYLAXIS Verified 06/15/18 17:41 mushroom Allergy HIVES Verified 06/15/18 17:54 Penicillins Allergy HIVES Verified 06/15/18 17:41 Review of Systems Constitutional: Denies: Chills, Fever, Malaise, Night sweats Eyes: Denies: Eye discharge, Eye pain ENT: Denies: Congestion, Ear pain, Epistaxis Respiratory: Denies: Cough, Dyspnea Cardiovascular: Denies: Chest pain, Dyspnea on exertion Endocrine: Denies: Fatigue, Heat or cold intolerance Gastrointestinal: Reports: Abdominal pain, Nausea, Vomiting Genitourinary: Denies: Incontinence, Retention Musculoskeletal: Reports: Back pain. Denies: Arthralgia, Gout, Joint swelling Skin: Denies: Bruising, Change in color Neurological: Denies: Abnormal gait, Confusion, Headache, Seizure Psychiatric: Reports: Anxiety, Depression, Suicidal thoughts Hematological/Lymphatic: Denies: Anemia, Blood Clots Past Medical History - SOCIAL HISTORY Smoking Status: Current every day smoker - RESPIRATORY Hx Respiratory Disorders: Yes Hx Asthma: Yes - CARDIOVASCULAR Hx Cardio Disorders: No - NEURO Hx Neuro Disorders: No - GI Hx GI Disorders: No - Hx Genitourinary Disorders: No - ENDOCRINE Hx Endocrine Disorders: No - MUSCULOSKELETAL Hx Musculoskeletal Disorders: No - PSYCH Hx Psych Problems: No - HEMATOLOGY/ONCOLOGY Hx Hematology/Oncology Disorders: No Family Medical History Any Significant Family History?: No Family Hx Comment (NOT TO BE USED IN PLACE OF ITEMS BELOW): unknown Physical Exam - General General Appearance: Alert, Oriented x3, Cooperative, Mild distress Limitations: No limitations - Head Head exam: Atraumatic, Normocephalic, Normal inspection Head exam detail: negative: Abrasion, Contusion, Cohen's sign, General tenderness, Hematoma, Laceration - Eye Eye exam: Normal appearance. negative: Conjunctival injection, Periorbital swelling, Periorbital tenderness, Scleral icterus - ENT Ear exam: negative: Auricular hematoma, Auricular trauma Nasal Exam: negative: Active bleeding, Discharge, Dried blood, Foreign body Mouth exam: negative: Drooling, Laceration, Muffled voice, Tongue elevation - Neck Neck exam: Normal inspection. negative: Meningismus, Tenderness - Respiratory Respiratory exam: Normal lung sounds bilaterally. negative: Rales, Respiratory distress, Rhonchi, Stridor - Cardiovascular Cardiovascular Exam: Normal rhythm, Normal heart sounds, Tachycardia - GI/Abdominal GI/Abdominal exam: Soft, Tenderness, Other (Diffuse TTP on examination). negative: Rebound, Rigid - Rectal Rectal exam: Deferred - exam: Deferred - Extremities Extremities exam: Normal inspection. negative: Pedal edema, Tenderness - Back Back exam: Reports: Normal inspection. Denies: CVA tenderness (R), CVA tenderness (L) - Neurological Neurological exam: Alert, Normal gait, Oriented X3 - Psychiatric Psychiatric exam: Normal affect, Normal mood - Skin Skin exam: Normal color. negative: Abrasion Type of lesion: negative: abrasion Course Vital Signs 07/20/18 21:55 Temperature 98 F Pulse Rate [ 114 H Pulse Ox Probe] Respiratory 24 Rate Blood Pressure 144/97 [Left Arm] Pulse Ox 98 - Reevaluation(s) Reevaluation #1: 07/20/18 22:04 EKG: NSR 105 Normal axis, normal intervals No acute ST-T wave changes Reevaluation #2: 07/20/18 23:09 Laboratory studies were reviewed and are grossly unremarkable except for the following: CO 6.8 CO2 19 AG 20 UDS positive for: Amphetamines Methamphetamines Cannabis Repeat Carboxyhemoglobin ordered as well. Reevaluation #3: 07/20/18 23:36 Repeat Carboxyhemoglobin 4.1. Patient is medically cleared for psychiatric evaluation. Application and Certification was completed, will initiate transfer to [facility] for further evaluation. Reevaluation #4: 07/20/18 23:39 Case was discussed with [facility], will fax the chart for review. Reevaluation #5: 07/21/18 00:20 Case was discussed with [facility], will accept for psychiatric evaluation. Will initiate transfer at this time. Medical Decision Making - Lab Data Result diagrams: 07/20/18 22:05 07/20/18 22:05 Disposition Disposition: Transfer Clinical Impression: Suicide attempt Disposition: Psychiatric Hospital Transfer To: [facility] Reason For Transfer: Psychiatric evaluation Accepting Physician: [facility]. Time Discussed w/Accepting Physician: 23:41 Condition: (2) Stable Forms: Patient Portal Access Time of Disposition: 23:41 Quality - Quality Measures Quality Measures: N/A - Blood Pressure Screening Does Patient Have Any of the Following: No Blood Pressure Classification: Hypertensive Reading Systolic Measurement: 128 Diastolic Measurement: 97 Screening for High Blood Pressure: < First Hypertensive BP, F/U Documented > [ [id number]] First Hypertensive Follow-up Interventions: Referral to alternative/primary care provider.
[2018-07-20 22:18] LABS: BASO % 0.1 % (0-6); EOS % 0.6 % (0-6); HEMATOCRIT 43.4 % (42.0-52.0); HEMOGLOBIN 15.4 gm/dl (14.0-18.0); LYMPH % 10.9 % (16-45); MEAN CELL VOLUME 88.4 fl (81-97); MEAN CORPUSCULAR HEMOGLOBIN 31.4 pg (27-33); MEAN CORPUSCULAR HGB CONC 35.5 g/dl (32-36); MEAN PLATELET VOLUME 10.8 fl (7.4-10.4); MONO % 10.4 % (0-9); PLATELET COUNT 223 K/uL (130-400); RED BLOOD COUNT 4.91 M/uL (4.40-5.70); WHITE BLOOD COUNT W/O DIFF 17.2 K/uL (4.2-12.2)
[2018-07-20 22:35] LABS: BLOOD UREA NITROGEN 15 mg/dL (6-20)
[2018-07-20 22:36] LABS: CREATININE 0.8 mg/dL (0.7-1.2); EST GLOMERULAR FILTRATION RATE > 60 mL/min; TOTAL PROTEIN 7.6 g/dL (6.6-8.7)
[2018-07-20 22:38] LABS: GLUCOSE,RANDOM 117 mg/dL (74-109)
[2018-07-20 22:41] LABS: ACETAMINOPHEN < 5.0 ug/mL (10.0-30.0); ALB/GLOB RATIO 1.5 (1.1-1.8); ALBUMIN 4.6 g/dL (4.0-5.0); ALKALINE PHOSPHATASE 67 U/L (40-129); ALT/SGPT 21 U/L (<41); AST/SGOT 70 U/L (10.0-50.0); SALICYLATE < 0.3 mg/dL (2.8-20)
[2018-07-20 22:51] LABS: THYROID STIMULATING HORMONE 1.57 uIU/mL (0.270-4.20)
[2018-07-20 22:57] LABS: AMPHETAMINE SCREEN URINE DETECTED; BARBITURATE SCREEN URINE NOT DETECTED; BENZODIAZEPINE SCREEN URINE NOT DETECTED; COCAINE SCREEN URINE NOT DETECTED; METHADONE SCREEN URINE NOT DETECTED; METHAMPHETAMINE SCREEN DETECTED; OPIATE SCREEN URINE NOT DETECTED; OXYCODONE SCREEN URINE NOT DETECTED; PHENCYCLIDINE SCREEN URINE NOT DETECTED; PROPOXYPHENE SCREEN URINE NOT DETECTED; THC SCREEN URINE DETECTED; TRICYCLIC ANTIDEPRESSANT SCRN NOT DETECTED
== END 2018-07-21 00:42 ==
LOC: ER 21:44
DX: T60.9 Toxic effect of unspecified pesticide (principal); R45.851 Suicidal ideations; R11.2 Nausea with vomiting, unspecified; R10.9 Unspecified abdominal pain; F17.210 Nicotine dependence, cigarettes, uncomplicated
CPT/HCPCS: 99285 ×2; 85025; 82375; 80053; 84443; 80305; 93005; 93010; G0480 ×3; J1980; 80320; 80329